=== PATIENT | female | born 1970 | race Two or more races ===

== ENCOUNTER 2016-12-15 06:53 | Emergency (ER) | payer MEDICAID, OTHER ==
[~2016-12-15] VITALS: Ht 167.6 cm; Wt 89.8 kg
[2016-12-15 07:30] VITALS: BP 166/93
== END 2016-12-15 08:31 | disposition home or self-care (01) ==
LOC: ER 07:02
DX: J06.9 Acute upper respiratory infection, unspecified (principal); I10 Essential (primary) hypertension; E07.9 Disorder of thyroid, unspecified; Z90.710 Acquired absence of both cervix and uterus